=== PATIENT | female | born 1955 | race Caucasian/White ===

== ENCOUNTER → 2019-12-29 | Outpatient (CLI) | payer MEDICARE, MEDICAID ==
[~2019-12-29] MED LIST: AZOR 10-20 MG1 EACH PO; GLUCOPHAGE1000 MG PO; HUMALOG100 UNIT/1 SQ; NORCO 5-325 TA1 EACH PO; SYNTHROID175 MCG PO; ZOCOR 20 MG TAB20 M1 PO
== END ==
LOC: M.ULTRA 10:00
DX: I73.9 Peripheral vascular disease, unspecified (principal); R60.9 Edema, unspecified